=== PATIENT | female | born 1980 | race Caucasian/White ===

== ENCOUNTER 2018-01-07 02:38 | Emergency (ER) | payer OTHER ==
[~2018-01-07 02:38] MED LIST: ACE3 PO; CLIN300C99 PO; DAR100 PO; FERR27TA3 PO; IBU800 PO; LOR5 PO; OXYC-865 PO; PEN250 PO; PENICILLIN PO
[2018-01-07 02:42] VITALS: BP 152/87
--- NOTE | 2018-01-07 02:49 | ER Report ---
History and Physical Time Seen By MD: 02:48 Hx. of Stated Complaint: DENTAL PAIN. HPI/ROS CHIEF COMPLAINT: toothache HISTORY OF PRESENT ILLNESS: This is a 37 year old female. She has a history of dental problems. She has pain in the left upper area. Started after bumping a tooth with significant decay. Has a little swelling in the area. Has no drainage. Is going to be seeing a dentist coming up in a few weeks to discuss getting her teeth pulled. Allergies: Coded Allergies: No Known Drug Allergies (Unverified , 01/07/18) Home Meds Active Scripts Clindamycin Hcl (CLINDAMYCIN HCL) 300 Mg Capsule, 300 MG PO Q8H, #30 CAPSULE 0 Refills Prov:BENITO NASSAR MD 01/07/18 Oxycodone Hcl/Acetaminophen (PERCOCET 5-325 MG TABLET) 1 Each Tablet, 1 EACH PO Q4H Y for PAIN, #12 TAB 0 Refills Prov:BENITO NASSAR MD 01/07/18 Discontinued Reported Medications Ferrous Sulfate (Iron) 1 Tab Tablet, 1 TAB PO QDAY 03/24/08 Discontinued Scripts Oxycodone Hcl/Acetaminophen (PERCOCET 5-325 MG TABLET) 1 Each Tablet, 1 EACH PO Q6H, #15 TAB Prov:RAISSA MYERS MD 08/01/14 Clindamycin Hcl (CLINDAMYCIN HCL) 300 Mg Capsule, 300 MG PO TID, #21 CAPSULE Prov:RAISSA MYERS MD 08/01/14 Reviewed Nurses Notes: Yes Hx Smoking: Yes Smoking Status: Current: Every Day Smoker Constitutional Vital Sign - Last 24 Hours 01/07/18 02:42 Temp 98.5 Pulse 100 Resp 16 B/P (MAP) 152/87 Pulse Ox 98 Physical Exam General Appearance: Alert, no distress. Eyes: Pupils equal and round no pallor or injection. ENT: Mucous membranes are moist. Oral mucosa is normal in appearance. Very poor dentition, red gums. Musculoskeletal: Neck is supple non tender Skin: Warm and dry, no rashes. DIFFERENTIAL DIAGNOSIS: After history and physical exam differential diagnosis was considered for toothache Medical Decision Making ED Course/Re-evaluation ED Course Provided clindamycin and Percocet. She will follow up with her dentist as planned. Decision to Disposition Date: Jan 07, 2018 Decision to Disposition Time: 02:55 Depart Departure Latest Vital Signs Vital Signs Date Time Temp Pulse Resp B/P (MAP) Pulse Ox O2 Delivery O2 Flow Rate FiO2 01/07/18 02:42 98.5 100 16 152/87 98 Impression: Primary Impression: Toothache Condition: Improved Disposition: HOME OR SELF-CARE New Scripts Clindamycin Hcl (CLINDAMYCIN HCL) 300 Mg Capsule 300 MG PO Q8H, #30 CAPSULE 0 Refills Prov: BENITO NASSAR MD 01/07/18 Oxycodone Hcl/Acetaminophen (PERCOCET 5-325 MG TABLET) 1 Each Tablet 1 EACH PO Q4H Y for PAIN, #12 TAB 0 Refills Prov: BENITO NASSAR MD 01/07/18 Patient Instructions: Toothache (ED) Additional Instructions: Please follow-up with your dentist as planned. Take Clindamycin 300mg three times a day. Take Percocet 5/325, one every 4 hours as needed for pain. Take Ibuprofen 200mg over the counter tablets, take 4 every 8 hours as needed for pain. BENITO NASSAR MD Jan 07, 2018 02:49
[2018-01-07] MEDS ORDERED: CLINDAMYCIN 150 MG CAP PO ONE (02:55)
[2018-01-07] MEDS ORDERED: oxyCODONE/ACETAMIN 5/325MG TH 2 TAB/BOTTLE PO ONE (02:55)
[2018-01-07] MEDS ORDERED: OXYC-865 PO (02:57)
[2018-01-07] MEDS ORDERED: CLIN300C99 PO (02:57)
== END 2018-01-07 03:13 | disposition home or self-care (01) ==
LOC: ER 03:00
DX: K08.89 Other specified disorders of teeth and supporting structures (principal)
CPT/HCPCS: 99282